=== PATIENT | female | born 1960 | race Caucasian/White ===

== ENCOUNTER 2024-09-23 16:01 | Emergency (ER) | payer BC, OTHER ==
[~2024-09-23] VITALS: Ht 172.7 cm; Wt 80.9 kg
[~2024-09-23 16:01] MED LIST: PERCOCET 325 MG1 TA2 PO; PROTONIX 40MG T40 MG PO; ZOFRAN ODT4 MG PO
[2024-09-23 16:11] VITALS: TEMP 98
[2024-09-23] MEDS ORDERED: Ketorolac 30 MG/ML VIAL IM ONE (16:45)
[2024-09-23] MEDS ORDERED: NORCO 325 MG-51 TAB PO (17:42)
[2024-09-23 17:45] VITALS: BP 123/72; PULSE 88
== END 2024-09-23 17:45 | disposition home or self-care (01) ==
LOC: COL.ER 16:01
DX: M25.512 Pain in left shoulder (principal)
CPT/HCPCS: J1885